=== PATIENT | female | born 1985 | race Caucasian/White ===

== ENCOUNTER 2016-12-03 07:12 | Inpatient (IN) | payer OTHER ==
[~2016-12-03] VITALS: Ht 157.5 cm; Wt 83.4 kg
[2016-12-03 07:24] VITALS: Ht 157.5 cm; Wt 83.4 kg
[2016-12-03 07:25] VITALS: BP 123/74; PULSE 86; RESP 18
[2016-12-03] MEDS ORDERED: LACTATED RINGER'S 1,000 ML IV SCH (07:48)
[2016-12-03] MEDS ORDERED: AMPICILLIN 2 GM/NS (PMX) 100 ML ONE (07:54)
[2016-12-03] MEDS ORDERED: OXYTOCIN 30 UNITS/LR 500 ML IV SCH (08:00)
[2016-12-03] MEDS ORDERED: OXYTOCIN 30 UNITS/LR 500 ML IV PRN ×2 (08:00→11:00)
[2016-12-03] MEDS ORDERED: AMPICILLIN 2 GM/NS (PMX) 100 ML IV ONE (08:00)
[2016-12-03] MEDS ORDERED: METHYLERGONOVINE 0.2 MG INJ IM PRN ×2 (08:00→11:00)
[2016-12-03] MEDS ORDERED: BUTORPHANOL 2 MG INJ IV PRN (08:00)
[2016-12-03] MEDS ORDERED: CARBOPROST 250 MCG INJ IM PRN ×2 (08:00→11:00)
[2016-12-03] MEDS ORDERED: LIDOCAINE 1% (MPF) 30 ML INJ INJ PRN (08:00)
[2016-12-03] MEDS ORDERED: IBUPROFEN 600 MG TAB PO PRN (08:00)
[2016-12-03] MEDS ORDERED: LIDOCAINE 1% (MPF) 30 ML INJ ONE (08:08)
[2016-12-03] MEDS ORDERED: OXYTOCIN 30 UNITS/LR 500 ML IV ONE (08:08)
[2016-12-03] MEDS: MISOPROSTOL 200 MCG TAB PR PRN ×2 (08:40→08:42)
[2016-12-03] MEDS: OXYTOCIN 30 UNITS/LR 500 ML IV SCH ×2 (08:40→09:25)
--- NOTE | 2016-12-03 09:02 | TRIAGE ---
OB Triage Datetime Report Generated by CPN: 12/03/2016 09:01 Datetime: 12/03/2016 08:51 Stage of : Recovery Temperature Route: Oral Pain Assessment Pain Scale: 2 Pain Presence: Intermittent Pain Type: Cramping Pain Location: Abdomen Pain Relief Measures: Comfort Measures Datetime: 12/03/2016 08:31 Labor Evaluation Frequency: 2-3 Monitor Mode: External Duration (sec)2399: 7 Quality: Strong Pattern: Normal: <= 5 Contractions in 10 Minutes Resting Tone Gardners: Relaxed Heart Rate FHR Baseline Rate: 150 Monitor Mode: External US Variability: Moderate 6-25 bpm Accelerations: 15X15 Decelerations: None Category: Category I Datetime: 12/03/2016 08:28 Labor Evaluation Frequency: 2-3 Monitor Mode: External Duration (sec)2399: 60 Quality: Moderate Pattern: Normal: <= 5 Contractions in 10 Minutes Resting Tone Gardners: Relaxed Heart Rate FHR Baseline Rate: 140 Monitor Mode: External US FHR Baseline Changes: No Baseline Change Variability: Moderate 6-25 bpm Accelerations: 15X15 Decelerations: None Category: Category I Membrane Status: Ruptured Membranes Rupture Method: Artificial Amniotic Fluid Color: Light Meconium Amniotic Fluid Amount: Moderate Amniotic Fluid Odor: None Datetime: 12/03/2016 08:09 Stage of : Labor Headache: Denies Blurred Vision: No RUQ Epigastric Pain: Denies Facial Edema: None Labor Evaluation Frequency: 3 Monitor Mode: External Duration (sec)2399: 60 Quality: Moderate Pattern: Normal: <= 5 Contractions in 10 Minutes Resting Tone Gardners: Relaxed Heart Rate FHR Baseline Rate: 140 Monitor Mode: External US FHR Baseline Changes: No Baseline Change Variability: Moderate 6-25 bpm Accelerations: 15X15 Decelerations: None Category: Category I Pain Assessment Pain Scale: 7 Pain Presence: Intermittent Pain Type: Contraction Pain Location: Abdomen Pain Relief Measures: Comfort Measures Membrane Status: Intact Datetime: 12/03/2016 07:57 Stage of : Labor Headache: Denies Blurred Vision: No RUQ Epigastric Pain: Denies Facial Edema: None Labor Evaluation Frequency: 2-3 Monitor Mode: External Duration (sec)2399: 3-4 Quality: Moderate Pattern: Normal: <= 5 Contractions in 10 Minutes Resting Tone Gardners: Relaxed Heart Rate FHR Baseline Rate: 140 Monitor Mode: External US FHR Baseline Changes: No Baseline Change Variability: Moderate 6-25 bpm Accelerations: 15X15 Decelerations: None Category: Category I Pain Assessment Pain Scale: 6 Pain Presence: Intermittent Pain Type: Contraction Pain Location: Abdomen Pain Relief Measures: Comfort Measures Membrane Status: Intact Datetime: 12/03/2016 07:40 Assessment Type: Admission Assessment Vaginal Bleeding: None Maternal Assessment Level of Consciousness: Fully Conscious DTR's/Clonus: DTRs 2+; No Clonus Headache: Denies Blurred Vision: No Respiratory Effort: Unlabored; Regular Rhythm; Equal Expansion Breath Sounds, Left: Clear and Equal Breath Sounds, Right: Clear and Equal Nausea/Vomiting: Denies RUQ Epigastric Pain: Denies Lower Extremities Edema: None Degree: None Upper Extremities Edema: None Facial Edema: None Fall Risk Assessment History of Falling: (0) No Secondary Diagnosis: (0) No Ambulatory Aid: (0) Bedrest/Nurse Assist IV Therapy: (0) No Gait: (0) Normal/Bedrest/Immobile Mental Status: (0) Oriented to Own Ability Fall Score: 0 Fall Risk Score Definition: No Risk: No action required Labor Evaluation Frequency: 1-2 Duration (sec)2399: 50-60 Quality: Moderate Pattern: Normal: <= 5 Contractions in 10 Minutes Resting Tone Gardners: Relaxed Heart Rate FHR Baseline Rate: 140 Variability: Moderate 6-25 bpm Accelerations: 15X15 Decelerations: None Category: Category I Pain Assessment Pain Scale: 5 Pain Presence: Intermittent Pain Type: Contraction Pain Location: Back Pain Goal: 3 Vaginal Exam Dilatation (cms): 10.0 Effacement (%): 100 Station: -1 Membrane Status: Bulging Datetime: 12/03/2016 07:30 Stage of : Labor Datetime: 12/03/2016 07:26 Vaginal Exam Dilatation (cms): 10.0 Effacement (%): 100 Station: -1 Exam By: MENDOZA MANE Vaginal Bleeding: None Cervix, Consistency: Soft Cervix, Position: Anterior Presentation 'A': Cephalic Datetime: 12/03/2016 07:17 Assessment Type: Triage Time of Arrival: 12/03/2016 07:30 EGA: 41.3 Arrived By: Ambulatory Arrived From: Home Maternal Assessment Level of Consciousness: Fully Conscious DTR's/Clonus: DTRs 2+; No Clonus Headache: Denies Blurred Vision: No Respiratory Effort: Unlabored; Regular Rhythm; Equal Expansion Breath Sounds, Left: Clear and Equal Breath Sounds, Right: Clear and Equal Nausea/Vomiting: Denies RUQ Epigastric Pain: Denies Lower Extremities Edema: None Degree: None Upper Extremities Edema: None Degree: None Facial Edema: None Fall Risk Assessment History of Falling: (0) No Secondary Diagnosis: (0) No Ambulatory Aid: (0) Bedrest/Nurse Assist IV Therapy: (0) No Gait: (0) Normal/Bedrest/Immobile Mental Status: (0) Oriented to Own Ability Fall Score: 0 Fall Risk Score Definition: No Risk: No action required Membranes Ruptured Date/Time: 12/03/2016 08:20 Presentation 'A': Cephalic Datetime: 12/03/2016 07:08 Stage of : OB Triage Time of Arrival: 12/03/2016 07:08 Arrived By: Ambulatory Arrived From: Home Chief Complaint: R/O LABOR Movement: Present Contractions: Occasional Rupture of Membranes: Denies Vaginal Discharge: Denies Recent Sexual Intercouse: Denies Abdominal Trauma: Not Applicable Additional Patient Complaints: NONE Time Provider Notified: 12/03/2016 07:30 Provider Notified: ABUSELEME Initial Plan: MONITOR AND VE
--- NOTE | 2016-12-03 09:41 | HP ---
Date/Time of Note Date/Time of Note DATE: 12/03/16 TIME: 09:36 OB - History Hx of Present Free Text/Dictation 29y.o in active labor with delivery imminent,membrane intact at 41w3d VE complete with bulging bag admitted for expectant management. GBS not known Estimated Due Date: Nov 23, 2016 : 8 Para: 7 Spontaneous : 0 Therapeutic : 0 Care: Limited Care Ultrasounds: Other Obstetrical Complications: None Medical Complications: None Past Family/Social History * Past Medical, Surgical, Family and Obstetric Histories reviewed from chart. Blood Type: B+ Rubella: immune RPR/VDRL: Negative GBS Status: Unknown HBsAG: Negative OB Admission Exam Vital Signs Vital Signs Vital Signs Date Time Temp Pulse Resp B/P Pulse Ox O2 Delivery O2 Flow Rate FiO2 12/03/16 07:25 97.9 86 18 123/74 99 Room Air Physical Exam HEENT: WNL Heart: Rhythm Normal Lungs: Clear, Equal Abdomen: WNL Extremities: Normal Reflexes: Normal Cervical Dilatation: 10cm Effacement: 100% Station: -2 Membranes: Intact Amniotic Fluid: Unevaluable Heart Rate: 140's Accelerations: Accelerations Present Decelerations: No Decelerations Varibility: Moderate Contractions on Admission: < 5 Minutes Apart Intensity: Moderate OB Assessment/Plan Reason for admission: active labor Other Assessment: IUP 41w3d Plan: Expectant Management CHRISTINA LEVY MD Dec 03, 2016 09:41
[2016-12-03 09:47] LABS: BASOPHILS % 0.3 % (0.0-2.0); EOSINOPHILS # 0.2 10^3/ul (0.0-0.5); EOSINOPHILS % 2.2 % (0.0-7.0); HEMATOCRIT 35.3 % (37.0-47.0); HEMOGLOBIN 11.6 g/dl (12.0-16.0); LYMPHOCYTES # 2.4 10^3/ul (0.8-2.9); LYMPHOCYTES % 32.8 % (15.0-51.0); MEAN CORPUSCULAR HEMOGLOBIN 29.7 pg (29.0-33.0); MEAN CORPUSCULAR HGB CONC 32.9 g/dl (32.0-37.0); MEAN CORPUSCULAR VOLUME 90.5 fl (82.0-101.0); MEAN PLATELET VOLUME 11.8 fl (7.4-10.4); MONOCYTE # 0.6 10^3/ul (0.3-0.9); MONOCYTES % 7.8 % (0.0-11.0); NEUTROPHIL # 4.1 10^3/ul (1.6-7.5); NEUTROPHILS % 56.6 % (39.0-77.0); PLATELET COUNT 180 10^3/UL (140-415); RED CELL DISTRIBUTION WIDTH 13.8 % (11.5-14.5); WHITE BLOOD COUNT 7.2 10^3/ul (4.8-10.8)
--- NOTE | 2016-12-03 09:48 | LDN ---
Date/Time of Note Date/Time of Note DATE: 12/03/16 TIME: 09:45 Delivery Summary Weeks of Gestation 41w3d Placenta Delivered: Spontaneously Meconium: none, Light Episiotomy: No Perineal laceration: 0 Anesthesia type: None Estimated blood loss: 200 Sponge & Needle done & correct: Yes All needle counts correct: Yes Any foreign bodies felt in the: No Problems: Infant Delivery Information Sex Infant Sex: male Apgars 1 Minute: 9 5 Minute: 9 Suctioning Nose & mouth suctioned at vani: Yes Delee suction performed: No Umbilical Cord Umbilical cord with: 3 Vessels Cord presentations: no nuchal cord Cord Blood was obtained: Yes Mother & Baby Disposition Disposition Mom & Baby to Maternity; Good: Yes Mom transferred to: Other Baby to NICU: No () CHRISTINA LEVY MD Dec 03, 2016 09:48
[2016-12-03 10:01] LABS: INR 0.93; PROTIME 12.5 Sec (12.2-14.2)
[2016-12-03 10:45] VITALS: BP 108/55; PULSE 64; RESP 17
[2016-12-03] MEDS: IBUPROFEN 600 MG TAB PO SCH ×3 (10:54→23:50)
[2016-12-03] MEDS ORDERED: OXYCODONE/ASPIRIN (4.88/325) TAB PO PRN ×2 (11:00)
[2016-12-03] MEDS ORDERED: ZOLPIDEM 5 MG TAB PO PRN (11:00)
[2016-12-03] MEDS ORDERED: WITCH HAZEL/GLYCERIN PAD PR PRN (11:00)
[2016-12-03] MEDS ORDERED: LANOLIN 7 GM TUBE TOP PRN (11:00)
[2016-12-03] MEDS ORDERED: BENZOCAINE 20% 56 ML SPRAY TOP PRN (11:00)
[2016-12-03] MEDS ORDERED: MISOPROSTOL 200 MCG TAB PR PRN (11:00)
[2016-12-03] MEDS ORDERED: AMPICILLIN 1 GM/NS (PMX) 50 ML IV SCH (12:00)
[2016-12-03 12:30] VITALS: BP 110/57; PULSE 68; RESP 16
[2016-12-03 16:00] VITALS: BP 111/59; PULSE 91; RESP 17
[2016-12-03 19:45] VITALS: BP 126/71; PULSE 81; RESP 16
[2016-12-03] MEDS: SENNA/DOCUSATE NA (8.6MG/50MG) TAB PO SCH (21:29)
[2016-12-04] VITALS: PULSE 74; RESP 18
[2016-12-04 04:30] VITALS: BP 106/65; PULSE 73; RESP 18
[2016-12-04] MEDS: IBUPROFEN 600 MG TAB PO SCH ×3 (06:14→17:05)
[2016-12-04 07:40] VITALS: BP 112/58; PULSE 70; RESP 19
[2016-12-04 08:37] LABS: BASOPHILS % 0.3 % (0.0-2.0); EOSINOPHILS # 0.2 10^3/ul (0.0-0.5); EOSINOPHILS % 3.1 % (0.0-7.0); HEMATOCRIT 32.4 % (37.0-47.0); HEMOGLOBIN 10.6 g/dl (12.0-16.0); LYMPHOCYTES # 2.2 10^3/ul (0.8-2.9); LYMPHOCYTES % 32.3 % (15.0-51.0); MEAN CORPUSCULAR HEMOGLOBIN 29.4 pg (29.0-33.0); MEAN CORPUSCULAR HGB CONC 32.7 g/dl (32.0-37.0); MEAN PLATELET VOLUME 11.7 fl (7.4-10.4); MONOCYTE # 0.5 10^3/ul (0.3-0.9); NEUTROPHIL # 3.9 10^3/ul (1.6-7.5); PLATELET COUNT 161 10^3/UL (140-415); RED CELL DISTRIBUTION WIDTH 13.8 % (11.5-14.5); WHITE BLOOD COUNT 6.8 10^3/ul (4.8-10.8)
[2016-12-04] MEDS: SENNA/DOCUSATE NA (8.6MG/50MG) TAB PO SCH ×2 (10:00→20:46)
[2016-12-04] MEDS ORDERED: INFLUENZA VIRUS VACCINE 0.5 ML (DISPENSING) IM* ONE (14:00)
[2016-12-04 16:00] VITALS: BP 118/57; PULSE 67; RESP 19
[2016-12-04 19:45] VITALS: BP 113/74; PULSE 69; RESP 18
--- NOTE | 2016-12-04 22:44 | PN ---
Date/Time of Note Date/Time of Note DATE: 12/04/16 TIME: 22:43 OB Subjective Subjective Subjective doing well no problems uterus contracted lochia normal OB Objective HEENT: WNL Heart: Rhythm Normal Lungs: Clear, Equal Abdomen: WNL Extremities: Normal Reflexes: Normal GARETH MCKENNA MD Dec 04, 2016 22:44
[2016-12-05] MEDS: IBUPROFEN 600 MG TAB PO SCH ×3 (00:11→12:16)
[2016-12-05 08:30] VITALS: BP 119/60; PULSE 73; RESP 16
[2016-12-05] MEDS ORDERED: DIPHTH/TET/ACEL PERTUSS (ADULT) 0.5 ML VIAL IM* ONE (09:00)
[2016-12-05] MEDS: SENNA/DOCUSATE NA (8.6MG/50MG) TAB PO SCH (09:11)
--- NOTE | 2016-12-05 09:51 | PD.PPDC ---
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
--- NOTE | 2016-12-05 09:52 | DS ---
Date/Time of Note Date/Time of Note DATE: 12/05/16 TIME: 09:52 Obstetrical Discharge Record Final Diagnosis Final Diagnosis: Term delivered Vaginal Delivery Obstetrical Delivery: Spontaneous Condition on Discharge Physical Assessment Voiding: Yes Bowel Movement: Yes Breast: Soft, non-tender, Filling Fundus: Firm Calf Tenderness: No Patient Condition: Good GARETH MCKENNA MD Dec 05, 2016 09:52
== END 2016-12-05 13:25 | disposition home or self-care (01) | DRG 775 ==
LOC: OBT 07:12 → L-D 07:12 → OBT 07:28 → L-D 07:29 → PP1 10:38
PROVIDERS: ADMIT Obstetrics & Gynecology; ATTEND Obstetrics & Gynecology
PROC: 10E0XZZ Delivery of Products of Conception, External Approach (ICD-10-PCS; principal; 2016-12-03)
PROC: 3E0234Z Introduction of Serum, Toxoid and Vaccine into Muscle, Percutaneous Approach (ICD-10-PCS; 2016-12-04)
DX: O48.0 Post-term pregnancy (principal); Z23 Encounter for immunization; Z37.0 Single live birth; Z3A.41 41 weeks gestation of pregnancy
CPT/HCPCS: 85025; 85610; 85730; 86592; 86900; 86901; 87340; 90686; 90715; G0463; J0290; J2590; J7120

== ENCOUNTER 2018-05-21 16:17 | Day surgery (SDC) | payer OTHER ==
[2018-05-21] VITALS (14 sets, daily range): BP systolic 103–127; BP diastolic 55–74; PULSE 70–86; RESP 16–21; Ht 157.5 cm; Wt 76.8 kg
[~2018-05-21] VITALS: Ht 157.5 cm; Wt 76.8 kg
--- NOTE | 2018-05-21 15:27 | PREOPHP ---
DATE OF ADMISSION: 05/20/2018 The patient is coming for a surgical procedure today. HISTORY OF PRESENT ILLNESS: This is a 32-year-old female 9, para 8 with due date of pregnanc y of 11/26/2018. This patient came for evaluation on 04/16/2018, at which time we did not find any heartbeat. She was sent in for NT ultrasound with Dr. Small that had seen her today and she had advised us that it was a demise and the patient is being admitted for a suction D and C. OBSTETRIC HISTORY: She had a history of 8 vaginal deliveries and no control. FAMILY HISTORY: Noncontributory. ALLERGIES: SHE IS NOT ALLERGIC TO ANY MEDICATIONS. SOCIAL HISTORY: She does not drink or smoke. PAST SURGICAL HISTORY: None. MEDICATIONS: None. PHYSICAL EXAMINATION: VITAL SIGNS: She is 5 feet and 2 inches. She weighs 170. The blood pressure is 100/68 which is nor mal. HEAD AND NECK: Normal. CHEST: Clear. HEART: Normal sinus rhythm. LUNGS: Clear. BREASTS: Soft, nontender. No masses. ABDOMEN: Soft, nontender. No masses. PELVIC: With a closed cervix with some mucus discharge. Uterus is about 8 weeks' size with de mise. The adnexa are negative. EXTREMITIES: Normal. DIAGNOSES: First trimester demise. PLAN: She is undergoing a suction D and C. She has been advised of the possible risks and possible complications of the surgery with her, alternatives and options. Written information was provided. She had no more questions and agreed to go ahead with the procedure with full understanding and no mo re questions. Dictated By: GARETH KRAUSE/SAMRA Conf#: [id number] DID#: [id number]
--- NOTE | 2018-05-21 18:52 | PREAC ---
Date/Time of Note Date/Time of Note DATE: 05/21/18 TIME: 18:51 Anesthesia Eval and Record Evaluation Time Pre-Procedure Interview DATE: 05/21/18 TIME: 18:51 Age 32 Sex female NPO: 8 hrs Preoperative diagnosis missed Planned procedure suction dilation and curettage Past Medical History Past Medical History: Includes GI: Obesity Surgery & Anesthesia Issues No known issue Meds Anticoagulation: No Beta Julianne within 24 hr: No Reason Beta Julianne not given: Pt. not on B-Julianne No Active Prescriptions or Reported Meds Meds reviewed: Yes Allergies Coded Allergies: No Known Allergy (Unverified , 12/03/16) Allergies Reviewed: Yes Labs/Studies Labs Reviewed: Reviewed by anesthesiologist Result Diagram: 05/21/18 1700 Laboratory Tests 05/21/18 17:00 Blood Bank Test 05/21/18 17:00 Blood Type B POSITIVE test: N/A Pre-procedure Exam Last vitals Vital Signs Date Temp Pulse Resp B/P (MAP) Pulse Ox O2 O2 Flow FiO2 Time Delivery Rate 05/21/18 98.4 84 18 123/ 99 Room Air 17:12 Airway: Adequate mouth opening, Adequate thyromental dist Mallampati: Mallampati II Teeth: Normal Lung: Normal Heart: Normal ASA Physical Status ASA physical status: 2 Emergency: None Planned Anesthetic General/MAC: LMA Planned Pain Management Parenteral pain med Pre-operative Attestations Prior to commencing anesthesia and surgery, the patient was re-evaluated, there was verification of: *The patient's identity *The results of appropriate recent lab work and preoperative vital signs *The above evaluation not changing prior to induction *Anesthetic plan, risk benefits, alternative and complications discussed with patient/family; questions answered; patient/family understands, accepts and wishes to proceed. Rivet Catcher used CLEO GRACIA MD May 21, 2018 18:52
[2018-05-21] MEDS ORDERED: ONDANSETRON 4 MG INJ IV PRN (19:00)
[2018-05-21] MEDS ORDERED: PROCHLORPERAZINE 10 MG INJ IV PRN (19:00)
[2018-05-21] MEDS ORDERED: OXYCODONE/ACETAMINOPHEN (5/325) TAB PO PRN (19:00)
[2018-05-21] MEDS ORDERED: DIPHENHYDRAMINE 50 MG INJ IV PRN (19:00)
[2018-05-21] MEDS ORDERED: MEPERIDINE 25 MG INJ IV PRN (19:00)
[2018-05-21] MEDS ORDERED: HYDROmorphONE 1 MG/5 ML IV SYRINGE IV PRN ×3 (19:00)
[2018-05-21] MEDS ORDERED: FENTAnyl 50 MCG/ML VIAL IV PRN (19:00)
[2018-05-21] MEDS ORDERED: PROPOFOL 20 ML ONE (19:28)
[2018-05-21] MEDS ORDERED: LIDOCAINE 2% (SDV) 5 ML INJ ONE (19:28)
[2018-05-21] MEDS ORDERED: FENTAnyl 50 MCG/ML VIAL ONE (19:28)
[2018-05-21] MEDS ORDERED: MIDAZOLAM 1 MG/ML 2 ML INJ ONE (19:28)
[2018-05-21] MEDS ORDERED: CEFAZOLIN 1 GM INJ ONE (19:36)
[2018-05-21] MEDS ORDERED: ONDANSETRON 4 MG INJ ONE (19:41)
[2018-05-21] MEDS ORDERED: DEXAMETHASONE 4 MG/ML 5 ML INJ ONE (19:41)
[2018-05-21] MEDS ORDERED: FAMOTIDINE 20 MG INJ ONE (19:42)
[2018-05-21] MEDS ORDERED: EPHEDrine 25 MG/5 ML SYG ONE (19:51)
[2018-05-21] MEDS ORDERED: OXYTOCIN 10 UNIT INJ ONE (19:58)
--- NOTE | 2018-05-21 20:14 | PD.PPDC ---
PROGRAM CONSULTANT Discharge Instruction Condition Opihm5Cm Patient Condition: Qabmh7w Good Diet [id number] Diet: Dumcn8t Resume Regular Diet Activity/Restrictions [id number] Activity: [id number] Normal Activity May Shower [id number] Restrictions: [id number] No Exercising No Lifting No Driving No Sexual Activity Nothing in the Vagina No [place] No Tampons, douche Follow-up Follow-up with Physician: 2, Week/Weeks Return to clinic for Rhfrc4Up POST DOC FELLOWSHIP Instructions: [id number] Fever greater than 101 Chills Worsening abdominal pain Excessive Vaginal Bleeding More than 2 pads per hour Unable to tolerate diet GARETH MCKENNA MD May 21, 2018 20:14
--- NOTE | 2018-05-21 20:19 | SIPON ---
Date/Time of Note Date/Time of Note DATE: 05/21/18 TIME: 20:18 Operative Report Preoperative Diagnosis First trimester demise Postoperative Diagnosis Same Operation/Procedure Performed Suction D&C Surgeon see signature line chemist assistant None Anesthesia: general Estimated blood loss: 10 - 50 ml's Transfusion Required none Specimen Uterine contents Grafts/Implants none Complications none GARETH MCKENNA MD May 21, 2018 20:19
--- NOTE | 2018-05-21 20:19 | PAC ---
Date/Time of Note Date/Time of Note DATE: 05/21/18 TIME: 20:17 Post-Anesthesia Notes Post-Anesthesia Note Last documented vital signs Vital Signs Date Temp Pulse Resp B/P (MAP) Pulse Ox O2 O2 Flow FiO2 Time Delivery Rate 05/21/18 98.4 84 18 123/ 99 Room Air 17:12 Activity: WNL Respiratory function: WNL Cardiovascular function: WNL Mental status: Baseline Pain reasonably controlled: Yes Hydration appropriate: Yes Nausea/Vomiting absent: Yes Comments BP: 103/55 HR: 98 RR: 15 T: 98 SaO2: 100% CLEO GRACIA MD May 21, 2018 20:19
[2018-05-21] MEDS ORDERED: KETOROLAC 30 MG INJ IV PRN (20:30)
--- NOTE | 2018-05-21 20:38 | OPR ---
DATE OF OPERATION: 05/21/2018 PREOPERATIVE DIAGNOSES: First trimester demise. POSTOPERATIVE DIAGNOSES: First trimester demise. PROCEDURE: Suction D and C. SURGEON: Gareth Olmstead MD ANESTHESIA: General. COMPLICATIONS: None. ANESTHESIOLOGIST: [place] Yoo MD PROCEDURE IN DETAILS: The patient was given general anesthesia, placed in the lithotomy position. T he perineal and vaginal area were prepped and draped and the catheterization of the bladder was done obtaining about 200 mL of urine. The examination under anesthesia revealed that the cervix is closed and the uterus is about 12 weeks' size. The uterus was sounded to 10 cm and the cervix was held and the Hegar dilators were used to dilate the cervix up to a size 10. The suction curet #10 curved was placed in and the suction curettage was done several times of the contents of the uterus. Ring forc eps was placed after the first passage of the suction to bring more tissue that was too solid to ente r the tube. The ring forceps brought most of the tissue out and then the suction curet was again fol lowed couple of times to clean the debris and the remnant of the products of conception. Sharp curet tage was used until the cavity was felt to be empty. The procedure was finished by removing all the instruments. The patient tolerated the procedure well and left the OR awake and stable. IV Pitocin was given and also IV antibiotics were given for prophylaxis. Blood loss was minimal and the urine w as clear at the end of the procedure. The patient left the OR awake and stable. Dictated By: GARETH KRAUSE/SAMRA Conf#: [id number] DID#: [id number]
== END 2018-05-21 21:20 | disposition home or self-care (01) ==
LOC: SDS 16:17
PROVIDERS: ATTEND Obstetrics & Gynecology
DX: O02.1 Missed abortion (principal); Z3A.12 12 weeks gestation of pregnancy
CPT/HCPCS: 59820; 81001; 85025; 85610; 85730; 86900; 86901; 88305; J0690; J1100; J2250; J2405; J2590; J3010; Z7512; Z7610